=== PATIENT | female | born 1955 | race Caucasian/White ===

== ENCOUNTER → 2021-02-06 12:30 | Outpatient (CLI) | payer OTHER, SELFPAY ==
--- NOTE | ~2021-02-06 | MM_ITS ---
EXAMINATION: MM screening thelma BI w malathi HISTORY: Screening mammogram TECHNIQUE: Craniocaudal and mediolateral oblique 3-D tomosynthesis images were obtained and synthetic 2-D images were generated. CAD analysis was submitted and interpreted. COMPARISON: , 08/05/2017 bilateral screening mammogram examinations BREAST PARENCHYMAL COMPOSITION: There are scattered areas of fibroglandular density. FINDINGS: There is no evidence of suspicious mass, calcification, or architectural distortion to sugg est malignancy in either breast. There has been no suspicious interval change. IMPRESSION: 1. No mammographic evidence of malignancy. 2. Recommend routine screening mammography in one year. BI-RADS Category 1: Negative Reviewed, dictated and finalized at location A. I DISCIPLINED LANGUAGE ANALYST
== END ==
PROVIDERS: Visit Provider Advanced Practice Midwife
DX: Z12.31 Encounter for screening mammogram for malignant neoplasm of breast (principal)
CPT/HCPCS: 77063; 77067

== ENCOUNTER → 2021-09-04 10:08 | Outpatient (CLI) | payer OTHER, SELFPAY ==
--- NOTE | ~2021-09-04 | DEXA_ITS ---
Bone Density Report Name: JANUARY CHUN Age: 66 Sex: Female Ethnicity: White Date of : 1955 Indication: osteopenia; hysterectomy; postmenopausal Referring Provider: Ольга Guerra Study: Bone densitometry was performed. Exam Date: September 04, 2021 Accession number: [id number] Bone Density: Region BMD T-score Z-score Classification AP Spine (L1-L4) 0.845 -1.8 0.0 Osteopenia Femoral Neck (Left) 0.724 -1.1 0.4 Osteopenia Total Hip (Left) 0.920 -0.2 1.1 Normal Femoral Neck (Right) 0.671 -1.6 0.0 Osteopenia Total Hip (Right) 0.950 0.1 1.4 Normal Total Hip Mean 0.935 -0.1 1.3 Normal World Health Organization criteria for BMD impression classify patients as: Normal (T-score at or above -1.0), Osteopenia (T-score between -1.0 and -2.5), or Osteoporosis (T-score at or below -2.5). 10-year Fracture Risk(1): Major Osteoporotic Fracture 8.8% Hip Fracture 1.0% Reported Risk Factors: [place] (), Neck BMD=0.671, BMI=34.8 (1) FRAX(R) Version 3.08. Fracture probability calculated for an untreated patient. Fracture probability may be lower if the patient has received treatment. Previous Exams: Region Exam Age BMD T-score BMD Change BMD Change Date g/cm2 vs Baseline vs Previous AP Spine(L1-L4) 09/04/2021 66 0.845 -1.8 -0.032 0.004 09/21/2013 58 0.841 -1.9 -0.035* -0.035* 05/11/2005 49 0.877 -1.5 Total Hip(Left) 09/04/2021 66 0.920 -0.2 0.036 0.093 09/21/2013 58 0.828 -0.9 -0.057* -0.057* 05/11/2005 49 0.884 -0.5 Total Hip(Right) 09/04/2021 66 0.950 0.1 0.027 0.139 09/21/2013 58 0.811 -1.1 -0.111* -0.111* 05/11/2005 49 0.922 -0.2 *Denotes significance at 95% confidence level, LSC for AP Spine = 0.022 g/cm2, LSC for Total Hip = 0.027 g/cm2 Clinical Information Provided by Patient: Has used the following medications: Vitamin D Has the following medical conditions: Hysterectomy Patient maximum height was 64.5 Menopause Age: 41 Drinks caffeinated beverages Onset of menses at age 11 Number of children 2 Impression: The patient has low bone mass, based on the Total Spine T-score. The patient has an estimated ten-year risk of hip fracture of 1% and an estimated ten-year risk of major fracture of 8.8%, based on the WHO FRAX algorithm. No significant bone loss was observed. Discussion: BON
== END ==
PROVIDERS: PCP Nurse Practitioner Obstetrics & Gynecology; Visit Provider Advanced Practice Midwife
DX: M81.0 Age-related osteoporosis without current pathological fracture (principal); M85.88 Other specified disorders of bone density and structure, other site; M85.852 Other specified disorders of bone density and structure, left thigh; M85.851 Other specified disorders of bone density and structure, right thigh
CPT/HCPCS: 77080

== ENCOUNTER → 2022-03-20 15:56 | Outpatient (CLI) | payer OTHER, SELFPAY ==
--- NOTE | ~2022-03-20 | MM_ITS ---
EXAMINATION: MM screening thelma BI w malathi HISTORY: Screening TECHNIQUE: Craniocaudal and mediolateral oblique 3-D tomosynthesis images were obtained and synthetic 2-D images were generated. CAD analysis was submitted and interpreted. COMPARISON: Comparison to multiple prior studies sequentially, with oldest reviewed study dated 12/31. BREAST PARENCHYMAL COMPOSITION: The breasts are heterogeneously dense, which may obscure small masses . FINDINGS: There is no evidence of suspicious mass, calcification, or architectural distortion to sugg est malignancy in either breast. There has been no suspicious interval change. IMPRESSION: 1. No mammographic evidence of malignancy. 2. Recommend routine screening mammography in one year. BI-RADS Category 1: Negative Reviewed, dictated and finalized at location A. D HAND
== END ==
PROVIDERS: Visit Provider Advanced Practice Midwife
DX: Z12.31 Encounter for screening mammogram for malignant neoplasm of breast (principal)
CPT/HCPCS: 77063; 77067